=== PATIENT | male | born 1970 | race Caucasian/White ===

== ENCOUNTER 2019-03-28 18:06 | Emergency (ER) | payer OTHER ==
[~2019-03-28] VITALS: Ht 175.3 cm; Wt 82.8 kg
[2019-03-28] MEDS ORDERED: ONDA4TAB12 PO (18:27)
[2019-03-28] MEDS ORDERED: BUTA1TAB23 PO (18:27)
--- NOTE | 2019-03-28 18:27 | PHYS DOC ---
Past History Past Medical History: High Cholesterol, Migraines Past Surgical History: No Surgical History Smoking: Quit Greater Than 1 Year Alcohol Use: Rarely Drug Use: None Adult General Chief Complaint Chief Complaint: HEADACHE HPI HPI Patient is a 48-year-old male with past medical history of migraines that is presenting to the emergency department with chief complaint of headache. Patient states that his headache began 48 hours ago, he tried the last pill of his abortive medication at home to no relief. Patient states that he has experienced aura similar to his past migraines, that being visual aura with aversion to light and sound. Patient states that he has mildly nauseous and has not ate anything because he does not feel like eating at the moment. Patient denies any focal neurologic deficits, trauma, confusion, paresthesias, loss of bowel or bladder function. Denies trauma. Denies fever/chills. Review of Systems Review of Systems Constitutional: Denies fever or chills Eyes: Denies redness or eye pain HENT: Denies nasal congestion or sore throat Respiratory: Denies cough or shortness of breath Cardiovascular: Denies chest pain or palpitations GI: Denies abdominal pain or vomiting; reports nausea : Denies dysuria or hematuria Musculoskeletal: Denies back pain or joint pain Integument: Denies rash or skin lesions Neurologic: Denies focal weakness or sensory changes; reports headache Complete systems were reviewed and found to be within normal limits, except as documented in this note. Allergies Allergies Allergies Coded Allergies Type Severity Reaction Last Updated Verified No Known Drug Allergies 03/28/19 No Physical Exam Physical Exam Constitutional: Well developed, well nourished, no acute distress, non-toxic appearance HENT: Normocephalic, atraumatic, oropharynx moist Eyes: PERRL, EOMI, conjunctiva normal, no discharge, photophobia Neck: Normal range of motion, no tenderness, supple, no meningeal signs Cardiovascular: Heart rate normal, regular rhythm Lungs & Thorax: Bilateral breath sounds clear to auscultation, no wheezing Abdomen: Soft, no tenderness Skin: Warm, dry, no erythema, no rash Extremities: No tenderness, ROM intact, no edema Neurologic: Alert and oriented X 3, normal motor function, normal sensory function, no focal deficits noted Psychologic: Affect normal, judgement normal Current Patient Data Vital Signs Vital Signs Date Time Temp Pulse Resp B/P (MAP) Pulse Ox O2 Delivery O2 Flow Rate FiO2 03/28/19 18:13 97.5 99 18 99 Room Air EKG EKG [] Radiology/Procedures Radiology/Procedures [] Course & Med Decision Making Course & Med Decision Making Patient is a 48-year-old male with past medical history of migraines is presenting to the emergency department with chief complaint of headache. Patient was seen and examined at bedside. Physical exam was negative for any focal neurologic deficits. Patient offered symptomatic relief and was okay with discharge at this time. Patient stable for discharge with outpatient follow-up with PCP. Discussed findings and plan with patient, who acknowledges understanding and agreement. Dragon Disclaimer Dragon Disclaimer This electronic medical record was generated, in whole or in part, using a voice recognition dictation system. Departure Departure: Impression: Primary Impression: Headache Disposition: HOME, SELF-CARE Condition: STABLE Referrals: ALBERTO RAMIREZ (PCP) JAVED FRIEND MD Patient Instructions: Headache, FAQs, Recurrent Migraine Headache Scripts Butalb/Acetaminophen/Caffeine ([id number] [id number]) 1 Each Tablet 1 EACH PO Q6HRS PRN for HEADACHE, #14 TAB Prov: WILLIAM HOANG DO 03/28/19 Ondansetron (ONDANSETRON ODT) 4 Mg Tab.rapdis 1 TAB PO PRN Q6-8HRS PRN for NAUSEA, #16 TAB Prov: WILLIAM HOANG DO 03/28/19 NIHSS - ED NIH Stroke Scale: NIH Stroke Scale Response (Comments) Value Level of Consciousness: 0 Alert/Responsive 0 LOC Questions: 0 Answers both correctly 0 LOC Commands: 0 Performs both tasks 0 Best Gaze: 0 Normal 0 Visual: 0 No visual loss 0 Facial Palsy: 0 Normal, symmetrical 0 Motor - Left Arm 0 No drift 0 Motor - Right Arm 0 No drift 0 Motor - Left Leg 0 No drift 0 Motor: Right Leg 0 No drift 0 Limb Ataxia: 0 Absent 0 Sensory: 0 No loss 0 Best Language: 0 Normal 0 Dysathria: 0 Normal 0 Extinction and Inattention: 0 Normal 0 Total 0 Problem Qualifiers Primary Impression: Headache Headache type: unspecified Headache chronicity pattern: acute headache Intractability: not intractable Qualified Codes: R51 - Headache WILLIAM HOANG DO Mar 28, 2019 18:27
[2019-03-28] MEDS ORDERED: ONDANSETRON ODT 4 MG TAB.RAPDIS PO ONE (18:30)
[2019-03-28] MEDS ORDERED: KETOROLAC 30 MG/ML VIAL. IM ONE (18:30)
[2019-03-28] MEDS ORDERED: BUTALB/APAP/CAFEIN 50/325/40MG TABLET. PO ONE (18:30)
[2019-03-28] MEDS ORDERED: DEXAMETHASONE 4 MG TABLET PO ONE (18:30)
[2019-03-28 19:00] VITALS: BP 124/85
== END 2019-03-28 18:57 | disposition home or self-care (01) ==
LOC: ER 18:06
DX: G43.909 Migraine, unspecified, not intractable, without status migrainosus (principal); E78.00 Pure hypercholesterolemia, unspecified; Z87.891 Personal history of nicotine dependence
CPT/HCPCS: 96372; 99284; J1885; J8540; Q0162

== ENCOUNTER 2020-09-02 10:01 | Emergency (ER) | payer OTHER ==
[~2020-09-02] VITALS: Ht 175.3 cm; Wt 82.8 kg
[~2020-09-02 10:01] MED LIST: BUTA1TAB23 PO; ONDA4TAB12 PO
[2020-09-02 10:12] VITALS: BP 121/78
[2020-09-02] MEDS ORDERED: ORPH-16 PO (10:25)
--- NOTE | 2020-09-02 10:25 | PHYS DOC ---
Past History Past Medical History: High Cholesterol, Migraines Additional Past Medical Histor: Chronic back pain and sciatica Past Surgical History: No Surgical History Smoking: Quit Greater Than 1 Year Alcohol Use: Rarely Drug Use: None General Adult EDM: Chief Complaint: BACK PAIN OR INJURY HPI: HPI: 50-year-old male presents with report of acute exacerbation of chronic low back pain. Patient reports started yesterday when he was on rowing machine. Reports felt sudden pain to right lower lumbar region with radiation to right thigh. P lanie does report history of chronic "herniated "discs in his low back as well as sciatica. Patient reports he has had an MRI within the last several years. Denies loss of bowel or bladder. Denies trauma. Denies fever or chills. Denies dysuria or hematuria. Review of Systems: Review of Systems: Constitutional: Denies fever or chills Eyes: Denies redness or eye pain HENT: Denies nasal congestion or sore throat Respiratory: Denies cough or shortness of breath Cardiovascular: Denies chest pain or palpitations GI: Denies abdominal pain, nausea, or vomiting : Denies dysuria or hematuria Musculoskeletal: Reports low right-sided back pain with radiation to right thigh Integument: Denies rash or skin lesions Neurologic: Denies headache, focal weakness or sensory changes; denies loss of bowel or bladder Complete systems were reviewed and found to be within normal limits, except as documented in this note. Allergies: Allergies: Allergies Coded Allergies Type Severity Reaction Last Updated Verified No Known Drug Allergies 03/28/19 No Physical Exam: PE: Constitutional: Well developed, well nourished, no acute distress, non-toxic appearance HENT: Normocephalic, atraumatic Eyes: Conjunctiva normal, no discharge Neck: Normal range of motion, supple Lungs & Thorax: No respiratory distress, equal chest rise and fall Skin: Warm, dry, no erythema, no rash Back: No midline tenderness, no CVA tenderness, right low lumbar paraspinal tenderness Extremities: No tenderness, ROM intact, no edema Neurologic: Alert and oriented X 3, normal motor function, normal sensory function, no focal deficits noted Psychologic: Affect normal, judgment normal Current Patient Data: Vital Signs: Vital Signs Date Time Temp Pulse Resp B/P (MAP) Pulse Ox O2 Delivery O2 Flow Rate FiO2 09/02/20 10:12 97.8 70 16 121/78 (92) 99 Room Air EKG: EKG: [] Radiology/Procedures: Radiology/Procedures: [] Heart Score: C/O Chest Pain: N/A Course & Med Decision Making: Course & Med Decision Making Patient presents with HPI and physical exam consistent for acute exacerbation of chronic back pain and sciatica. Patient reports driving to facility and requests a muscle relaxer. Patient reports taking ibuprofen at 0800 this morning. Prescription for muscle relaxer provided. Patient stable for discharge with outpatient follow-up with PCP. Discussed findings and plan with patient, who acknowledges understanding and agreement. Dragon Disclaimer: Dragon Disclaimer: This electronic medical record was generated, in whole or in part, using a voice recognition dictation system. Departure Departure: Impression: Primary Impression: Acute exacerbation of chronic low back pain Additional Impression: Sciatica of right side Disposition: HOME / SELF CARE / HOMELESS Condition: STABLE Referrals: ALBERTO RAMIREZ (PCP) Patient Instructions: Chronic Back Pain, Sciatica, [id number] Additional Instructions: ICE area of discomfort 20 min on then leave off next 20 mins. Repeat several times daily as needed for next 72 hours. After 72 hours then introduce heat instead of ICE. Use over the counter Tylenol and/or Ibuprofen for pain or discomfort. Scripts Orphenadrine Citrate (ORPHENADRINE CITRATE) 100 Mg Tablet.er 1 TAB PO BID PRN for MUSCLE PAIN, #14 TAB 0 Refills Prov: WILLIAM HOANG DO 09/02/20 WILLIAM HOANG DO September 02, 2020 10:25
== END 2020-09-02 10:26 | disposition home or self-care (01) ==
LOC: ER 10:01
DX: G89.29 Other chronic pain (principal); M54.41 Lumbago with sciatica, right side; E78.00 Pure hypercholesterolemia, unspecified; G43.909 Migraine, unspecified, not intractable, without status migrainosus; Z87.891 Personal history of nicotine dependence
CPT/HCPCS: 99283

== ENCOUNTER 2021-05-30 03:41 | Emergency (ER) | payer OTHER ==
[~2021-05-30] VITALS: Ht 175.3 cm; Wt 87.5 kg
[~2021-05-30 03:41] MED LIST changes: +ORPH-16 PO
--- NOTE | 2021-05-30 03:44 | PHYS DOC ---
Past History Past Medical History: High Cholesterol, Migraines Additional Past Medical Histor: Chronic back pain and sciatica Past Surgical History: No Surgical History Smoking: Quit Greater Than 1 Year Alcohol Use: Rarely Drug Use: None General Adult HPI: HPI: ". I ve got a bad migraine....",. " I was out of my Rizatriptan.. I did take some zofran... 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 Patient denies any specific ill contacts. Up-to-date with vaccinations. No recent travel. Last overseas assignment was [place] in two thousand seventeen. Patient normally takesRizatriptan for headaches but was out of this Rx. Pt. did have some zofran but it did not help with headache at this time. Pt. did drive self. States he can't be sedated, because he responsible for delivery in the morning. pt. follows with Dr. Gunn. Review of Systems: Review of Systems: Constitutional: Denies fever or chills Eyes: Denies change in visual acuity. Complains of photophobia HENT: Denies nasal congestion or sore throat Respiratory: Denies cough or shortness of breath Cardiovascular: Denies chest pain or edema GI: Complains of, nausea,. Denies vomiting, bloody stools or diarrhea : Denies dysuria Musculoskeletal: Denies back pain or joint pain Integument: Denies rash Neurologic: Denies headache, focal weakness or sensory changes Endocrine: Denies polyuria or polydipsia Lymphatic: Denies swollen glands Psychiatric: Denies depression or anxiety Family History: Family History: Noncontributory to presentation Current Medications: Current Meds: See nursing for home meds Allergies: Allergies: Allergies Coded Allergies Type Severity Reaction Last Updated Verified No Known Drug Allergies 03/28/19 No Physical Exam: PE: Constitutional: Well developed, well nourished, moderate acute distress, non- toxic appearance. [] HENT: Normocephalic, atraumatic, bilateral external ears normal, oropharynx moist, no oral exudates, nose normal. [] Eyes: PERRLA, EOMI, conjunctiva normal, no discharge. Some photophobia. Neck: Normal range of motion, no tenderness, supple, no stridor. [] Cardiovascular:Heart rate regular rhythm, no murmur [] Lungs & Thorax: Bilateral breath sounds equal apex auscultation [] Abdomen: Bowel sounds normal, soft, no tenderness, no masses, no pulsatile m asses. [] Skin: Warm, dry, no erythema, no rash. [] Back: No tenderness, no CVA tenderness. [] Extremities: No tenderness, no cyanosis, no clubbing, ROM intact, no edema. [] Neurologic: Alert and oriented X 3, normal motor function, normal sensory function, no focal deficits noted. DTRs +2 patella and brachial. Vibratory one twenty-eight intact . Ambulatory without problems. No drift. Manganese Breaker equal. Psychologic: Affect anxious, judgement normal, mood normal. [] EKG: EKG: [] Radiology/Procedures: Radiology/Procedures: [] Heart Score: C/O Chest Pain: N/A Risk Factors: Risk Factors: DM, Current or recent (<one month) smoker, HTN, HLP, family history of CAD, obesity. Risk Scores: Score 0 - 3: 2.5% MACE over next 6 weeks - Discharge Home Score 4 - 6: 20.3% MACE over next 6 weeks - Admit for Clinical Observation Score 7 - 10: 72.7% MACE over next 6 weeks - Early Invasive Strategies Course & Med Decision Making: Course & Med Decision Making Pertinent Labs and Imaging studies reviewed. (See chart for details) Pt. requesting discharge. Pt. reports clearing of his migraine. Pt. take his migraine meds as directed. Return if any concerns. Impression: 1. Migraine Headache. [] Mario Disclaimer: Mario Disclaimer: This electronic medical record was generated, in whole or in part, using a voice recognition dictation system. Departure Departure: Referrals: COURTNEY GUNN (PCP) Scripts Butalb/Acetaminophen/Caffeine ([id number] CP) 1 Each Capsule 1 CAP PO DAILY for migraine for 30 Days, #30 CAP 0 Refills Prov: FERMIN KAM MD 05/30/21 Rizatriptan Benzoate (MAXALT) 10 Mg Tablet 1 TAB PO UD for migraine, #9 TAB 2 Refills Prov: FERMIN KAM MD 05/30/21 Ondansetron (ONDANSETRON ODT) 4 Mg Tab.rapdis 8 MG PO QIDPRN PRN for NAUSEA/VOMITING, #30 TAB Prov: FERMIN KAM MD 05/30/21 Mario Disclaimer This chart was dictated in whole or in part using Voice Recognition software in a busy, high-work load, and often noisy Emergency Department environment. It may contain unintended and wholly unrecognized errors or omissions. Dragon Disclaimer This chart was dictated in whole or in part using Voice Recognition software in a busy, high-work load, and often noisy Emergency Department environment. It may contain unintended and wholly unrecognized errors or omissions. FERMIN KAM MD May 30, 2021 03:44
[2021-05-30] MEDS ORDERED: BUTALB/APAP/CAFEIN 50/325/40MG TABLET. PO PRN (04:00)
[2021-05-30] MEDS ORDERED: KETOROLAC 60 MG/2 ML VIAL. IM ONE (04:00)
[2021-05-30] MEDS ORDERED: SUMAtriptan SUCC 6 MG/0.5 ML VIAL SQ ONE (04:00)
[2021-05-30] MEDS ORDERED: ONDANSETRON ODT 4 MG TAB.RAPDIS PO ONE (04:00)
[2021-05-30] MEDS ORDERED: ONDA4TAB12 PO (04:11)
[2021-05-30] MEDS ORDERED: BUTA1CAP27 PO (04:11)
[2021-05-30] MEDS ORDERED: RIZA10TA PO (04:11)
[2021-05-30 05:33] VITALS: BP 113/77
== END 2021-05-30 05:36 | disposition home or self-care (01) ==
LOC: ER 03:41
DX: G43.909 Migraine, unspecified, not intractable, without status migrainosus (principal); E78.00 Pure hypercholesterolemia, unspecified; G89.29 Other chronic pain; Z87.891 Personal history of nicotine dependence
CPT/HCPCS: 96372; 99284; J1885; J3030; Q0162

== ENCOUNTER 2021-05-31 15:57 | Emergency (ER) | payer OTHER ==
[~2021-05-31] VITALS: Ht 175.3 cm; Wt 87.5 kg
[~2021-05-31 15:57] MED LIST changes: +BUTA1CAP27 PO; +RIZA10TA PO
--- NOTE | 2021-05-31 16:08 | PHYS DOC ---
Past History Past Medical History: High Cholesterol, Migraines Additional Past Medical Histor: Chronic back pain and sciatica Past Surgical History: No Surgical History Smoking: Quit Greater Than 1 Year Alcohol Use: None Drug Use: None Adult General Chief Complaint Chief Complaint: LOWER EXT PAIN HPI HPI Patient is a 50-year-old male presenting for right groin strain. 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 Reports pain is distal to genital region but is on anterior portion of thigh and runs along medial thigh down to the knee. Reports there is a tight muscle that is painful with palpation. Has not taken anything in attempt to alleviate his symptoms. No bladder or bowel incontinence, no trauma or falls, no penile and/or testicle abnormalities Review of Systems Review of Systems Fourteen body systems of review of systems have been reviewed. See HPI for pertinent positives and negative responses, other sánchez all other systems are negative, non-pertinent or non-contributory Allergies Allergies Allergies Coded Allergies Type Severity Reaction Last Updated Verified No Known Drug Allergies 03/28/19 No Physical Exam Physical Exam Constitutional: Well developed, well nourished, no acute distress, non-toxic johnnie earance. HENT: Normocephalic, atraumatic, bilateral external ears normal, oropharynx moist, no oral exudates, nose normal. Eyes: PERRLA, EOMI, conjunctiva normal, no discharge. Neck: Normal range of motion, no tenderness, supple, no stridor. Cardiovascular: Heart rate regular, sinus rhythm, no murmurs rubs or gallops Lungs & Thorax: Bilateral breath sounds clear to auscultation Abdomen: Bowel sounds normal, soft, no tenderness, no masses, no pulsatile masses. Nonsurgical abdomen, no peritoneal signs : Pubic region nontender to palpation, no palpable abnormalities within inguinal canals bilaterally, bilateral lateral testes descended without abnormalities, there is point tenderness present to insertion of right sartorius muscle with palpable muscle belly pain along medial portion of the thigh along sartorius muscle belly Skin: Warm, dry, no erythema, no rash. Back: No tenderness, no CVA tenderness. Extremities: No tenderness, no cyanosis, no clubbing, ROM intact, no edema. Neurologic: Alert and oriented X 3, grossly normal motor & sensory function, no focal deficits noted. Psychologic: Affect normal, judgement normal, mood normal. EKG EKG [] Radiology/Procedures Radiology/Procedures [] Heart Score C/O Chest Pain: No Risk Factors: Risk Factors: DM, Current or recent (<one month) smoker, HTN, HLP, family history of CAD, obesity. Risk Scores: Risk Factors: DM, Current or recent (<one month) smoker, HTN, HLP, family history of CAD, obesity. Course & Med Decision Making Course & Med Decision Making ABCs unremarkable History and physical exam consistent with sartorius muscle strain of right thigh. No red flag signs or symptoms indicating need for further diagnostic work-up. Supportive care and appropriate return precautions discussed prior to departure Dragon Disclaimer Dragon Disclaimer This electronic medical record was generated, in whole or in part, using a voice recognition dictation system. Departure Departure: Impression: Primary Impression: Muscle strain of right thigh Disposition: HOME / SELF CARE / HOMELESS Condition: STABLE Referrals: COURTNEY SORIANO (PCP) Additional Instructions: It is likely that you have experienced a sprain/strain to an associated ligament/tendon within the joint that is causing you pain. The best treatment for this injury is continued range of motion to prevent a frozen joint. A Rest, Ice, Compression, Elevation (RICE) strategy may also be helpful in the acute phase. Please follow up with your primary doctor. Please return to the ED if new or worrisome symptoms arise. FEDERICO REED DO May 31, 2021 16:08
[2021-05-31 16:14] VITALS: BP 103/79
== END 2021-05-31 16:26 | disposition home or self-care (01) ==
LOC: ER 15:57
DX: S76.911A Strain of unspecified muscles, fascia and tendons at thigh level, right thigh, initial encounter (principal); E78.00 Pure hypercholesterolemia, unspecified; G43.909 Migraine, unspecified, not intractable, without status migrainosus; G89.29 Other chronic pain; Z87.891 Personal history of nicotine dependence; X50.0XXA Overexertion from strenuous movement or load, initial encounter; Y93.89 Activity, other specified; Y92.89 Other specified places as the place of occurrence of the external cause; Y99.8 Other external cause status
CPT/HCPCS: 99281